=== PATIENT | female | born 1975 | race Caucasian/White ===

== ENCOUNTER → 2017-04-20 | Day surgery (SDC) | payer OTHER ==
[~2017-04-20] VITALS: Ht 162.6 cm; Wt 79.4 kg
[~2017-04-20] MED LIST: BACITRACIN PWD 50,000 UNITS VIAL As Ordered ONE; BUPIVACAINE HCL 0.5% 30 ML VIAL As Ordered ONE; KETOROLAC 60 MG/2 ML VIAL (J1885) As Ordered ONE; LIDOCAINE 2% INJ 100 MG/5 ML SDV (FOR ANES.) As Ordered ONE; LIDOCAINE 2% MDV 20 ML VIAL As Ordered ONE; LR 1,000 ML IV SCH; METOCLOPRAMIDE INJ 10MG/2ML VIAL (J2765) As Ordered ONE; MIDAZOLAM INJ 2 MG/2 ML VIAL (J2250) As Ordered ONE; NEOSPORIN GU IRRIG 20 ML VIAL As Ordered ONE; ONDANSETRON 4MG/2ML VIAL (J2405) As Ordered ONE; PHENYLephrine HCL 500 MCG/5 ML (100MCG/ML) SYRINGE (J2370) As Ordered ONE; PROPOFOL 200 MG/20 ML VIAL As Ordered ONE; TOPA25TA10 PO; ZOLO50TA PO; dexameTHASONE 4 MG/ML 1ML VIAL (J1100) As Ordered ONE; ePHEDrine SULFATE 25 MG/5 ML(5MG/ML) SYRINGE As Ordered ONE; fentaNYL 100 MCG/2 ML INJECTION (J3010) As Ordered ONE
[2017-04-20 08:16] LABS: CONTROL LINE UCG INT CTR LINE PRESENT
--- NOTE | 2017-04-20 11:11 | REP ---
Clinical: Postoperative baseline. Technique: Portable AP, lateral, oblique views of the right foot. Findings: The patient is status post surgical procedure for hallux valgus deformity. Impression: Status post surgical procedure involving the first metatarsal bone. Signed by Stuart Atkinson MD 04/20/2017 11:03 A
[2017-04-20 12:39] VITALS: BP 104/65
--- NOTE | 2017-04-21 09:02 | RO ---
DATE OF PROCEDURE: 04/20/2017 PREPROCEDURE DIAGNOSIS: Hallux valgus metatarsus primus varus deformity, right foot. POSTPROCEDURE DIAGNOSIS: Hallux valgus metatarsus primus varus deformity, right foot. SURGEON: Luis Enrique Chris DPM IP ATTORNEY: None. ANESTHESIA: Local monitored anesthesia care (MAC). IRRIGATION: Dilute bacitracin, neomycin and polymyxin B solution. HEMOSTASIS: Ankle pneumatic tourniquet at 200 mmHg for 36 minutes, right ankle. HARDWARE UTILIZED: A [employer]eng DartFire 3.0 x 20 mm compression screw. DESCRIPTION OF PROCEDURE: On 04/20/2017, this 41-year-old white female was taken from his hospital room to the operating room and placed on the operating table in supine position. Following the induction of IV sedation and local and regional anesthesia, the right lower extremity was prepped and draped in the usual aseptic manner. Attention was directed to the patient's first metatarsal where the following procedure was performed: VANESSA BUNIONECTOMY WITH INTERNAL SCREW FIXATION, 3.0 mm x 20 mm times one, RIGHT FOOT: Attention was directed to the patients right foot where there was noted to be a hallux valgus deformity. At this time a 6 cm incision was placed over the first metatarsophalangeal joint of the right foot. The incision was deepened through subcutaneous tissues and all coursing venous tributaries were identified, underscored, clamped, cut, ligated and electrocoagulated as necessary. A linear capsulotomy was then performed in the same plane as the original skin incision. The capsule and periosteal structures were then dissected free in one continuous layer dorsally, medially and laterally, thus creating a capsule and periosteal type envelope. This brought into view the hypertrophied medial eminence of the first metatarsal, which was osteotomized from distal to proximal through and through. Attention was directed to the first intermetatarsal space where dissection was carried down to the level of the conjoined tendon, which was sharply dissected free from the fibular sesamoid. Attention was then directed to the medial surface of the first metatarsal where a V-shaped osteotomy was performed along the plantar and short dorsal wing. Upon creation of this osteotomy, capital fragment was transposed 40 to 45% of the width of the shaft of the first metatarsal and fixated with a 3.0 x 20 mm cannulated compression screw. The osteotomy was noted to be stable in all three cardinal planes. The redundant cortical spike was then osteotomized from dorsal to plantar through and through. This revealed a large cyst in the medullary canal of the first metatarsal. This was curetted out, and then the redundant cortical spike was then cut and then placed into the cortical defect. The wound was flushed with copious amounts of dilute bacitracin, neomycin, and polymyxin B solution. Attention was directed towards closure where the capsular structures were coapted and maintained utilizing #2-0 Monocryl in a simple interrupted type fashion. The subcutaneous tissues were coapted and maintained utilizing #4-0 Monocryl in a simple interrupted type fashion. The skin incision was coapted and maintained utilizing #5-0 Monocryl in a continuous subcuticular type fashion. This was additionally reinforced with Steri-Strips. Following the completion of the surgical procedure, 4 mg of dexamethasone sodium phosphate was instilled proximal to the surgical site. Attention was then directed towards bandaging where a sterile compressive bandage was applied consisting of Adaptic, 4x4s, 4x4 splints, Edgar, Kerlix and Coban. The ankle pneumatic tourniquet was rapidly deflated and instantaneous capillary filling time was noted in digits 1 through 5 of the patient's right foot. The patient, having apparently tolerated the surgical procedure well, was taken from the operating room to the recovery room, vital signs stable, afebrile for further monitoring by the anesthesia department. All surgical specimens were removed during the operative procedure were sent to pathology for gross microscopic examination. Postoperative instructions given upon discharge.
== END | disposition home or self-care (01) ==
LOC: M SDC 07:34
PROVIDERS: ATTEND Podiatrist
DX: M20.11 Hallux valgus (acquired), right foot (principal); M20.12 Hallux valgus (acquired), left foot; K58.8 Other irritable bowel syndrome; D64.9 Anemia, unspecified; G43.909 Migraine, unspecified, not intractable, without status migrainosus; Z98.84 Bariatric surgery status; Z79.899 Other long term (current) drug therapy
CPT/HCPCS: 28296; 73630; 84703; 88300; C1776; J0690; J1100; J1885; J2250; J2370; J2405; J2765; J3010

== ENCOUNTER 2017-11-10 08:59 | Day surgery (SDC) | payer OTHER ==
[~2017-11-10] VITALS: Ht 162.6 cm; Wt 76.2 kg
[~2017-11-10 08:59] MED LIST changes: -BACITRACIN PWD 50,000 UNITS VIAL As Ordered ONE; -BUPIVACAINE HCL 0.5% 30 ML VIAL As Ordered ONE; -KETOROLAC 60 MG/2 ML VIAL (J1885) As Ordered ONE; -LIDOCAINE 2% INJ 100 MG/5 ML SDV (FOR ANES.) As Ordered ONE; -LIDOCAINE 2% MDV 20 ML VIAL As Ordered ONE; -LR 1,000 ML IV SCH; -METOCLOPRAMIDE INJ 10MG/2ML VIAL (J2765) As Ordered ONE; -MIDAZOLAM INJ 2 MG/2 ML VIAL (J2250) As Ordered ONE; -NEOSPORIN GU IRRIG 20 ML VIAL As Ordered ONE; -ONDANSETRON 4MG/2ML VIAL (J2405) As Ordered ONE; -PHENYLephrine HCL 500 MCG/5 ML (100MCG/ML) SYRINGE (J2370) As Ordered ONE; -PROPOFOL 200 MG/20 ML VIAL As Ordered ONE; +TOPA1TAB PO; -TOPA25TA10 PO; -dexameTHASONE 4 MG/ML 1ML VIAL (J1100) As Ordered ONE; -ePHEDrine SULFATE 25 MG/5 ML(5MG/ML) SYRINGE As Ordered ONE; -fentaNYL 100 MCG/2 ML INJECTION (J3010) As Ordered ONE
[2017-11-10] MEDS ORDERED: LR 1,000 ML IV ONE ×2 (09:15)
[2017-11-10 09:57] LABS: CONTROL LINE HCG INT CTR LINE PRESENT
[2017-11-10] MEDS ORDERED: LIDOCAINE 2% INJ 100 MG/5 ML SDV (FOR ANES.) As Ordered ONE (10:55)
[2017-11-10] MEDS ORDERED: PROPOFOL 200 MG/20 ML VIAL As Ordered ONE (10:55)
[2017-11-10] MEDS ORDERED: MIDAZOLAM INJ 2 MG/2 ML VIAL (J2250) As Ordered ONE (10:55)
[2017-11-10] MEDS ORDERED: fentaNYL 100 MCG/2 ML INJECTION (J3010) As Ordered ONE (10:55)
[2017-11-10] MEDS ORDERED: LIDOCAINE 2% MDV 20 ML VIAL As Ordered ONE (11:00)
[2017-11-10] MEDS ORDERED: NEOSPORIN GU IRRIG 20 ML VIAL As Ordered ONE (11:00)
[2017-11-10] MEDS ORDERED: BUPIVACAINE HCL 0.5% 30 ML VIAL As Ordered ONE (11:00)
[2017-11-10] MEDS ORDERED: dexameTHASONE 4 MG/ML 1ML VIAL (J1100) As Ordered ONE (11:00)
[2017-11-10] MEDS ORDERED: BACITRACIN PWD 50,000 UNITS VIAL As Ordered ONE (11:01)
[2017-11-10] MEDS ORDERED: KETOROLAC 60 MG/2 ML VIAL (J1885) As Ordered ONE (12:37)
[2017-11-10] MEDS ORDERED: ONDANSETRON 4MG/2ML VIAL (J2405) As Ordered ONE (12:37)
--- NOTE | 2017-11-10 16:05 | REP ---
LEFT FOOT, THREE VIEWS: Three views of the left foot are performed. The patient has had surgery at the distal first metatarsal with a screw at that location. Structures are well aligned. Overlying cast obscures underlying osseous detail. Signed by Major Pearl MD 11/10/2017 04:57 P
--- NOTE | 2017-11-10 19:28 | RO ---
DATE OF PROCEDURE: 11/10/2017 PREPROCEDURE DIAGNOSIS: Hallux valgus metatarsus primus varus deformity left foot. POSTPROCEDURE DIAGNOSES: Hallux valgus metatarsus primus varus deformity left foot. Bone cyst first metatarsal left foot. OPERATIVE PROCEDURE: 1. Sameer Bunionectomy, internal screw fixation 3.0 x 20 mm times one. 2. Debridement of bone cyst with otogenous bone graft first metatarsal left foot. SURGEON: Luis Enrique Chris DPM SUPERVISOR CLAIMS: None. ANESTHESIA: Local Monitored anesthesia care (MAC) IRRIGATION: Dilute bacitracin, neomycin and polymyxin B solution. DESCRIPTION OF PROCEDURE: On 11/10/2017, this 41-year-old white female was taken from her hospital room to the operating room and placed on the operating room table in the supine position. Following the induction of IV sedation and local and regional anesthesia, the left lower extremity was prepped and draped in the usual aseptic manner. Attention was directed to the patient's left foot. After the tourniquet was rapidly inflated and there was noted to be a moderate hallux valgus deformity. At this time, a 6 cm incision was placed over the first metatarsophalangeal joint medial to extensor tendon. The incision was deepened into the subcutaneous tissues and all coursing venous tributaries were identified, underscored, clamped, cut ligated and electrocauterized as necessary. A linear capsulotomy was performed in the same plane as the original skin incision. The capsular and periosteal structures were then dissected free in one continuous layer, dorsally, medially and laterally thus creating a capsular periosteal type envelope. The medial eminence was then osteotomized from distal to proximal through and through and extirpated from the wound in toto. Attention was directed then to the first intermetatarsal space where the conjoined tendon was sharply dissected free from the fibular sesamoid. Utilizing a power saw an osteotomy was then performed and the distal metaphysis of the first metatarsal with long plantar and short dorsal length. Upon creation of this osteotomy, the capital fragment was transposed but there was noted to be a considerable cystic erosion in the proximal aspect of the first metatarsal. This limited excursion to slightly more than 40%. Any more translation would have jeopardized fixation of the first metatarsal and possible collapse of the cortical strut. This area of cystic change was then curetted out revealing a large cyst, however, cutting the redundant cortical spike allowed enough bone for osseous remodeling and this was packed into the cortical shaft of the first metatarsal. The wound was flushed with copious amounts of dilute bacitracin, neomycin and polymyxin B solution. A 3.0 x 20 mm Dart-Fire screw was placed across the osteotomy with firm compression. Capsular structures were then coapted and maintained with #2-0 Monocryl in a simple interrupted type fashion. Subcutaneous tissues coapted and maintained using #4-0 Monocryl in a simple interrupted type fashion. Skin incision coapted and maintained utilizing #5-0 Monocryl in a continuous subcuticular type fashion. This was additionally reinforced with Steri-Strips. Attention was directed toward bandaging, where a sterile compression bandage was applied consisting of Adaptic, 4 x 4s, 4 x 4 splints, Kerlix and Coban. A below the knee well-molded boot cast was then applied to the patient's foot. The foot had a right angle to the lower leg. The patient apparently having tolerated the surgical procedure well was taken from the OR to the recovery room, vital signs stable, patient afebrile, for further management of the anesthesia department. All surgical specimens removed during the operative procedure sent to pathology for gross and microscopic examination. Postoperative instructions given upon discharge.
== END 2017-11-10 15:50 | disposition home or self-care (01) ==
LOC: M SDC 08:59
PROVIDERS: ATTEND Podiatrist
DX: M20.12 Hallux valgus (acquired), left foot (principal); M85.472 Solitary bone cyst, left ankle and foot; D64.9 Anemia, unspecified; G43.909 Migraine, unspecified, not intractable, without status migrainosus; Z79.899 Other long term (current) drug therapy; Z98.84 Bariatric surgery status
CPT/HCPCS: 28104; 28296; 36415; 73630; 84703; 88300; C1713; J0690; J1100; J1885; J2250; J2405; J3010

== ENCOUNTER 2021-05-08 08:39 | Day surgery (SDC) | payer OTHER ==
[~2021-05-08] VITALS: Ht 162.6 cm; Wt 89.3 kg
[~2021-05-08 08:39] MED LIST changes: +BACITRACIN PWD 50,000 UNITS VIAL As Ordered ONE; +DULO1CAP6; +LIDOCAINE 1% MDV 20ML VIAL SQ PRN; +LR 1,000 ML IV ONE; +NEOSPORIN GU IRRIG 20 ML VIAL As Ordered ONE; +ceFAZolin SOD 2 GM in IV 1 EA IV ONE; +dexameTHASONE 4 MG/ML 1ML VIAL (J1100 PER 1MG) As Ordered ONE
[2021-05-08] MEDS ORDERED: propofoL 200 MG/20 ML VIAL As Ordered ONE ×3 (10:15→13:17)
[2021-05-08] MEDS ORDERED: MIDAZOLAM INJ 2MG/2ML VIAL (J2250 PER 1MG) As Ordered ONE (10:15)
[2021-05-08] MEDS ORDERED: fentaNYL 100 MCG/2 ML INJECTION (J3010) As Ordered ONE (10:15)
[2021-05-08] MEDS ORDERED: LIDOCAINE 2% 100MG/5ML SDV (FOR ANES.) As Ordered ONE (10:16)
[2021-05-08] MEDS ORDERED: ACETAMINOPHEN 1000MG 100ML IV BTL (OFIRMEV) (J0131 PER 10MG) As Ordered ONE (12:07)
[2021-05-08] MEDS ORDERED: ONDANSETRON 4MG/2ML VIAL As Ordered ONE (12:08)
[2021-05-08] MEDS: BUPIVACAINE HCL 0.5% 30 ML VIAL As Ordered ONE (13:15)
[2021-05-08] MEDS: LIDOCAINE 2% MDV 20ML VIAL As Ordered ONE (13:15)
[2021-05-08] MEDS ORDERED: oxyCODONE 5MG TAB PO PRN (13:50)
[2021-05-08] MEDS ORDERED: ONDANSETRON 4MG/2ML VIAL IV PRN (13:50)
[2021-05-08] MEDS ORDERED: LR 1,000 ML IV SCH (13:50)
[2021-05-08] MEDS ORDERED: fentaNYL 100 MCG/2 ML INJECTION (J3010) IV PRN (13:50)
[2021-05-08 16:00] VITALS: BP 115/64
--- NOTE | 2021-05-08 16:22 | RO ---
OPERATIVE NOTE DATE OF OPERATION: 05/08/2021 PREOPERATIVE DIAGNOSIS: Tenosynovitis, peroneal tendon, left foot. POSTOPERATIVE DIAGNOSIS: Peroneal tendon tear and presence of a peroneal quartus tendon. PROCEDURE: Repair Peroneal brevis tendon, left foot. 2. debridement of peroneus quartus tendon. ANESTHESIA: Spinal anesthesia. IRRIGATION: Dilute bacitracin, neomycin, polymyxin B solution. DRAINS UTILIZED: TLS drain. HARDWARE UTILIZED: None. SURGEON: Luis Enrique Chris DPM DIRECTOR DIVERSITY: None. ESTIMATED BLOOD LOSS 10 mL DESCRIPTION OF OPERATION: On 05/08/2021, this 45-year-old white female was taken from her hospital room to the operating room and placed on the operating table in supine position. Following the induction of IV sedation and local and regional anesthesia, the left lower extremity was prepped and draped in the usual aseptic manner. The patient had spinal anesthesia performed and she was then placed in the right lateral decubitus position, elevating the left fibula in a superior position. The thigh tourniquet was rapidly inflated to 250 mmHg. A Betadine prep was performed to the left lower extremity and the following procedure was performed. Repair of peroneus brevis tendon, left foot. Attention was directed to the patient's foot and an 8-1/2 cm incision was placed posterior to the fibula, ending just proximal to the peroneal tubercle of the calcaneus. Incision was deepened through the subcutaneous tissues. All crossing venous tributaries were identified, underscored, clamped, cut, ligated or electrocoagulated as necessary Utilizing 3-0 Monocryl, the superior retinaculum was tagged, then transected. The peroneal tendon sheath was then opened, revealing a considerable amount of fluid. A peroneus quartus tendon and muscle belly were noted in the sheath. The peroneal brevis tendon had three strands noted, one being quite small, less than 10% and this was debrided, leaving two approximately equal segments of peroneal brevis tendon utilizing 4-0 FiberWire with a buried knot repair A continuous running stitch was then placed through the posterior and the anterior tear of the tendon. Attention was then directed to the peroneus quartus tendon which was dissected to the area of the peroneal tubercle where it was transected and then traced approximately 3 cm superior to the fibula. Utilizing electrocoagulation, the muscle belly was cut. All additional bleeders were electrocoagulated as encountered. A TLS drain was then placed into the tendon sheath. The wound was flushed with copious amounts of dilute Bacitracin, bacitracin, neomycin and polymyxin B solution. The peroneal tendon sheath was repaired with 4-0 Monocryl in a continuous running stitch. The subcutaneous tissues were coapted and maintained utilizing 4-0 Monocryl in a simple interrupted type fashion. The skin incision was coapted and maintained utilizing 3-0 nylon in a simple interrupted type fashion. Compressive dressing was applied consisting of Adaptic, 4x4s, ABDs and Kerlix followed by Coban. TLS drain was noted to be functioning satisfactorily when the thigh tourniquet was released. Instantaneous capillary filling time was noted to digits 1-5 of the patient's left extremity. The patient was taken from the OR to recovery room for further monitoring by the anesthesia department. Postoperative instructions were given upon discharge. MARK
== END 2021-05-08 16:32 | disposition home or self-care (01) ==
LOC: M SDC 08:39
PROVIDERS: ATTEND Podiatrist
DX: M76.72 Peroneal tendinitis, left leg (principal); M79.672 Pain in left foot; K58.8 Other irritable bowel syndrome; D64.9 Anemia, unspecified; F41.9 Anxiety disorder, unspecified; G43.909 Migraine, unspecified, not intractable, without status migrainosus; Z98.84 Bariatric surgery status; Z79.899 Other long term (current) drug therapy
CPT/HCPCS: 27658; 27680; 81025; 88300; J0131; J0690; J2250; J2405; J3010